=== PATIENT | female | born 1940 | race Caucasian/White ===

== ENCOUNTER → 2023-09-14 10:10 | Outpatient (REF) | payer MEDICARE, SELFPAY | LOC: HWRAD 10:10 | PROVIDERS: ATTENDING PHYSICIAN Surgery; FAMILY PHYSICIAN Internal Medicine | DX: D17.1 Benign lipomatous neoplasm of skin and subcutaneous tissue of trunk (principal) | CPT/HCPCS: 71260; Q9967 ==

== ENCOUNTER 2023-10-19 06:09 | Day surgery (SDC) | payer MEDICARE, SELFPAY ==
[2023-10-19] VITALS (9 sets, daily range): BP systolic 99–136; BP diastolic 51–71; BMI 34.5
[2023-10-19] MEDS: VANCOCIN 200 IV (08:31)
[2023-10-19] MEDS: NORMOSOL-R 1000 IV (08:31)
[2023-10-19] MEDS: TYLENOL 1000 MG PO (08:38)
== END 2023-10-19 12:05 | disposition home or self-care (01) ==
LOC: SDS 06:09
PROVIDERS: ATTENDING PHYSICIAN Surgery
DX: C83.02 Small cell B-cell lymphoma, intrathoracic lymph nodes (principal)
CPT/HCPCS: 21555; 88304; 88341; 88342

== ENCOUNTER → 2024-01-04 12:11 | Outpatient (REF) | payer MEDICARE, SELFPAY ==
[2024-01-04 14:41] LABS: HDL Cholesterol 79 mg/dl; LDL Cholesterol, Calculated 136 mg/dl; Total Cholesterol 235 mg/dl (50-199); Triglyceride 100 mg/dl (10-149); Very Low Density Lipoprotein 20 mg/dl (0-30)
== END ==
LOC: REG 12:11
PROVIDERS: ATTENDING PHYSICIAN Internal Medicine
DX: E55.9 Vitamin D deficiency, unspecified (principal); E78.00 Pure hypercholesterolemia, unspecified
CPT/HCPCS: 36415; 80061; 82306

== ENCOUNTER → 2024-01-18 09:33 | Outpatient (REF) | payer MEDICARE, SELFPAY ==
[2024-01-18 10:18] LABS: % Basophils 0.9 % (0-2); % Eosinophils 4.4 % (0-6); % Immature Granulocytes 0.3 % (0-0.5); % Lymphocytes 24.3 % (20.5-51.1); % Monocytes 8.4 % (1.7-9.3); % Neutrophils 61.7 % (42.2-75.2); Absolute Basophils 0.1 10^3/uL (0-0.2); Absolute Eosinophils 0.3 10^3/uL (0-0.7); Absolute Lymphocytes 1.8 10^3/uL (1.2-3.4); Absolute Monocytes 0.6 10^3/uL (0.1-0.6); Absolute Neutrophils 4.6 10^3/uL (1.4-6.5); Hematocrit 39.8 % (37.0-47.0); Hemoglobin 13.8 g/dL (12.0-16.0); Mean Corp Hgb Conc. 34.7 g/dL (33.0-37.0); Mean Corpuscular Hgb 30.3 pg (27.0-31.0); Mean Corpuscular Volume 87.5 fL (81.0-99.0); Mean Platelet Volume 9.6 fL (7.4-10.4); Nucleated Red Blood Cells % 0 %; Platelet Count 243 10^3/uL (130-400); Red Blood Cell Count 4.55 10^6/uL (4.20-5.40); Red Cell Dist. Width 12.6 % (11.5-14.5); White Blood Cell Count 7.5 10^3/uL (4.8-10.8)
[2024-01-18 12:50] LABS: ALT (SGPT) 20 U/L (0-35); AST (SGOT) 27 U/L (14-36); Albumin 4.6 g/dl (3.5-5.0); Alkaline Phosphatase 77 U/L (38-126); Blood Urea Nitrogen 19 mg/dl (7-17); Calcium 9.8 mg/dl (8.4-10.2); Carbon Dioxide 29 mmol/L (22-30); Chloride 103 mmol/L (98-107); Glucose 79 mg/dl (70-99); Potassium 4.5 mmol/L (3.5-5.1); Sodium 141 mmol/L (135-145); Total Bilirubin 0.6 mg/dl (0.2-1.3); Total Protein 8.2 g/dl (6.3-8.2); eGFR > 60.00
[2024-01-20 06:37] LABS: Number Of Markers 26 markers; Source Blood
[2024-01-20 08:25] LABS: Beta-2-Microglobulin 2.1 mg/L (<=3.0)
== END ==
LOC: REG 09:33
PROVIDERS: ATTENDING PHYSICIAN Internal Medicine Hematology & Oncology; FAMILY PHYSICIAN Internal Medicine
DX: C83.00 Small cell B-cell lymphoma, unspecified site (principal)
CPT/HCPCS: 36415; 80053; 82232; 82784; 83521; 84155; 84165; 85025; 86334

== ENCOUNTER → 2024-08-17 09:16 | Outpatient (REF) | payer MEDICARE, SELFPAY ==
[2024-08-17 10:34] LABS: % Basophils 0.6 % (0-2); % Eosinophils 2.4 % (0-6); % Immature Granulocytes 0.2 % (0-0.5); % Lymphocytes 24.7 % (20.5-51.1); % Monocytes 8.5 % (1.7-9.3); % Neutrophils 63.6 % (42.2-75.2); Absolute Eosinophils 0.2 10^3/uL (0-0.7); Absolute Lymphocytes 1.6 10^3/uL (1.2-3.4); Absolute Monocytes 0.6 10^3/uL (0.1-0.6); Absolute Neutrophils 4.2 10^3/uL (1.4-6.5); Hematocrit 39.6 % (37.0-47.0); Hemoglobin 13.5 g/dL (12.0-16.0); Mean Corp Hgb Conc. 34.1 g/dL (33.0-37.0); Mean Corpuscular Hgb 30.4 pg (27.0-31.0); Mean Corpuscular Volume 89.2 fL (81.0-99.0); Mean Platelet Volume 9.9 fL (7.4-10.4); Nucleated Red Blood Cells % 0 %; Platelet Count 237 10^3/uL (130-400); Red Blood Cell Count 4.44 10^6/uL (4.20-5.40); Red Cell Dist. Width 12.4 % (11.5-14.5); White Blood Cell Count 6.6 10^3/uL (4.8-10.8)
[2024-08-17 11:10] LABS: ALT (SGPT) 14 U/L (0-35); AST (SGOT) 23 U/L (14-36); Albumin 4.5 g/dl (3.5-5.0); Alkaline Phosphatase 77 U/L (38-126); Blood Urea Nitrogen 22 mg/dl (7-17); Calcium 9.7 mg/dl (8.4-10.2); Carbon Dioxide 29 mmol/L (22-30); Chloride 102 mmol/L (98-107); Glucose 96 mg/dl (70-99); Sodium 140 mmol/L (135-145); Total Bilirubin 0.5 mg/dl (0.2-1.3); Total Protein 7.8 g/dl (6.3-8.2); eGFR > 60.00
[2024-08-17 14:48] LABS: LDH 187 U/L (120-246)
[2024-08-20 04:53] LABS: Alpha 1 Globulin 0.23 g/dL (0.19-0.46); Alpha 2 Globulin 0.58 g/dL (0.48-1.05); Free Kappa Light Chains,Quant 22.75 mg/L (3.30-19.40); IgA 259 mg/dL (68-408); IgG 1560 mg/dL (768-1632); IgM 90 mg/dL (35-263); Immunofixation Electrophoresis IFE Done; Kappa/Lambda Fr Light Ratio 1.71 (0.26-1.65); Monoclonal Protein 0.95 g/dL (<=0.00); Total Protein-Electrophoresis 7.4 g/dL (6.3-8.2)
== END ==
LOC: REG 09:16
PROVIDERS: ATTENDING PHYSICIAN Internal Medicine Hematology & Oncology
DX: C83.84 Other non-follicular lymphoma, lymph nodes of axilla and upper limb (principal)
CPT/HCPCS: 36415; 80053; 82784; 83521; 83615; 84155; 84165; 85025; 86334

== ENCOUNTER → 2025-01-15 08:38 | Outpatient (REF) | payer MEDICARE, SELFPAY | LOC: PAVMRI 08:38 | PROVIDERS: ATTENDING PHYSICIAN Specialist; FAMILY PHYSICIAN Nurse Practitioner Adult Health | DX: G30.1 Alzheimer's disease with late onset (principal) | CPT/HCPCS: 70551 ==

== ENCOUNTER → 2025-06-03 15:18 | Outpatient (REF) | payer MEDICARE, SELFPAY ==
[2025-06-03 16:06] LABS: Urine Character Clear (Clear)
== END ==
LOC: REG 15:18
PROVIDERS: ATTENDING PHYSICIAN Nurse Practitioner Adult Health
DX: R39.15 Urgency of urination (principal)
CPT/HCPCS: 81003; 81015; 87086